=== PATIENT | male | born 1980 | race Caucasian/White ===

== ENCOUNTER 2025-07-28 10:49 | Outpatient (REF) | payer OTHER, SELFPAY ==
--- NOTE | 2025-07-28 | EMG_ITS ---
Chief complaint:?Pain, polyneuropathy Referred by:?Marlo Armenta MD Procedure done: All four extremities NCS/EMG Bilateral median, ulnar, tibial, and peroneal motor studies were performed. Bilateral superficial peroneal and sural sensory studies were performed, median and ulnar mixed sensory studies were performed, radial sensory studies were performed, and median lateral antecubital brachial sensory studies were performed. Median and lateral mixed plantars sensory studies were also performed. Tibial H reflexes were obtained and needle examination was performed. Impression: This extensive nerve conduction study of all 4 extremities with needle examination of paraspinals did not reveal any significant abnormality. Coding:? [id number] 4 extremities MTDD
== END 2025-07-28 10:50 | disposition home or self-care (01) ==
LOC: HO.NEURO 10:49
PROVIDERS: PCP Family Medicine; Visit Provider Family Medicine
DX: G62.89 Other specified polyneuropathies (principal)
CPT/HCPCS: 95886; 95913

== ENCOUNTER → 2025-07-28 11:00 | Outpatient (BNV) | payer OTHER, SELFPAY | PROVIDERS: PCP Family Medicine; Visit Provider Psychiatry & Neurology Neurology | DX: G62.9 Polyneuropathy, unspecified (principal) | CPT/HCPCS: 95886; 95913 ==